=== PATIENT | female | born 1985 | race Caucasian/White ===

== ENCOUNTER 2018-10-18 06:20 | Inpatient (IN) | payer OTHER, SELFPAY ==
[2018-10-18 07:12] VITALS: BMI 38.3
[2018-10-18] MEDS: Lactated Ringer's 1,000 ML IV SCH ×2 (07:15→08:52)
[2018-10-18] MEDS ORDERED: Misoprostol 200 MCG TAB PR PRN (07:28)
[2018-10-18] MEDS ORDERED: NS / Oxytocin 40 units/1000ml 1,000 ML IV PRN (07:28)
[2018-10-18] MEDS ORDERED: Methylergonovine 0.2 MG/ML VIAL IM PRN (07:28)
[2018-10-18] MEDS ORDERED: hydrALAZINE 20 MG/ML VIAL SLOW IVP PRN ×2 (07:28→14:04)
[2018-10-18] MEDS ORDERED: Acetaminophen 500 MG TAB PO PRN (07:28)
[2018-10-18] MEDS ORDERED: Lidocaine 1% (PF) 30 ML VIAL SC PRN (07:28)
[2018-10-18] MEDS ORDERED: Ibuprofen 800 MG TAB PO PRN (07:28)
[2018-10-18] MEDS ORDERED: Ondansetron PF 4 MG/2 ML Vial IVP PRN ×2 (07:28→09:28)
[2018-10-18] MEDS ORDERED: Carboprost 250 MCG/ML AMP IM PRN (07:28)
[2018-10-18] MEDS ORDERED: Promethazine HCl 25 MG/ML VIAL IM PRN ×2 (07:28→09:28)
--- NOTE | 2018-10-18 07:49 | PDOC.FPROB ---
FMR OB H&P: HPI - History of Present Illness Chief Complaint: contractions History of Present Illness: 33 y/o , @38.3 dated by Patient complains of contractions every 4-5 minutes that are rated a 6/10 for pain. She is requesting a epidural for pain control. Patient denies any LOF, vaginal bleeding. She states she feels baby moving. Her first check in L&D was a 5 with buldging bag. Pt has a hx of placenta previa that was resolved on US Friday 10/13. She states her GTT was elevated but her glucose logs have all been normal and she is controlling gDM without meds and diet only. Primary Care Physician: Dr. Martinez FMR OB H&P: Current - Care : 4 Para: 3 Gestational age: 38.3 Due date: 10/29/18 Dating Criteria: 7.3 wk sono and LMP Course/Complications: gestational DM - OB Labs Blood type: O RH: positive Antibody Screen: negative HIV: negative RPR: negative HepBsAg: negative Rubella: immune Gonorrhea: negative Chlamydia: negative Pap Smear: neg 1 hour gtt: unknown record 3 hour GTT: unknown record A1c: 5.3 GBS: unknown - First Trimester Ultrasound First trimester: complete previa - Anatomy Survey Anatomy survey: nml multigravida , in 2nd trimester Complete previa noted - Additional Ultrasound Additional: no complete previa on sono done 10/13. FMR OB H&P: History - Past Medical History PMH: no known PMHx. Denies asthma or HTN. - OB History OB History: Placenta Previa --> resolved - Surgical History Sx History: none - Social History Social History: Denies use of tobacco, etoh, or drugs. - Family History Family History: Spouse's niece had Trisomy 21. FMR OB H&P: Medications - Current Home Medications: Medication Instructions Recorded Confirmed Type No Known 10/18/18 10/18/18 History Allergies/Adverse Reactions: Allergies Allergy/AdvReac Type Severity Reaction Status Date / Time No Known Allergies Allergy Unverified 10/18/18 07:05 FMR OB H&P: ROS - Review of Systems General: denies: fever/chills, night sweats, fatigue Eyes: denies: eye pain, vision changes, double vision ENT: denies: nasal congestion, rhinorrhea Cardiovascular: denies: chest pain, palpitation, edema Respiratory: denies: cough, congestion, shortness of breath Gastrointestinal: denies: abdominal pain, nausea, vomiting, diarrhea, constipation Genitourinary (Female): denies: incontinence, dysuria Musculoskeletal: denies: pain, arthritis/arthralgias Neurologic: denies: seizures, weakness Integumentary: denies: rash Psychological: denies: depression, anxiety FMR OB H&P: Vital Signs - Maternal Vital signs: Vital Signs - First Documented Temp Pulse Resp BP Pulse Ox 98.2 F 93 18 120/60 99 10/18/18 07:04 10/18/18 07:04 10/18/18 07:04 10/18/18 07:04 10/18/18 07:04 - Heart Tones Baseline: 140 Variability: moderate Acceleration: present Deceleration: absent Category: category 1 [place] contractions every: 5-7 min FMR OB H&P: Physical Exam - Physical Exam General: NAD, awake, alert and oriented HEENT: normocephalic and atraumatic, PERRLA, EOMI, MMM, conjunctiva clear, no scleral icterus, grossly normal vision, grossly normal hearing, oropharynx clear , good dention Neck: supple, FROM, trachea midline Chest: non-tender to palpation, no lesions Heart: RRR, normal S1/S2, no murmurs/rubs/gallops, pulses present, no edema General: CTAB, no respiratory distress, good air movement, no rales/rhonchi, no wheezing, no retractions Abdomen: soft, gravid, non-tender, bowel sound present Musculoskeletal: normal gait and station, pulses present, FROM in all four extremities Neurological: cranial nerves II through XII intact, sensation to pain,touch and proprioception grossly normal Skin: no rash, no jaundice Lymphatic: no unusual bruising or bleeding, no purpura, no petechia Psychiatric: intact recent and remote memory, good judgement and insight, normal mood and affect - Pelvic Exam SVE: 5 @ 7:10 by nurse Membranes: intact, bulging bag FMR OB H&P: A/P - Problem List (1) Term Current Visit: Yes Status: Acute Code(s): Z34.90 - ENCNTR FOR SUPRVSN OF NORMAL , UNSP, UNSP TRIMESTER (2) Gestational diabetes mellitus Current Visit: Yes Status: Acute Code(s): O24.419 - GESTATIONAL DIABETES MELLITUS IN , UNSP CONTROL Disposition: Patient stable, contractions every 4-5 minutes. Discussion: 33 y/o @ 38.3 wks, by 7.1 wk sono, admitted for contractions and term . 1. Term IUP -FHT's baseline 140's. Cat 1 strip- moderate variability, no decels, accels present. -check: 5 bulging bag @ 7:10 -Pt wants epidural for pain management. -Recheck in X2 hours once epidural placed -Complete Placenta Previa, resolved on most recent US on Friday 10/13. 3. Gestational DM -managed by diet, no medications -Blood glucose has been normal
[2018-10-18 08:07] LABS: Hemoglobin 11.5 g/dL (12.0-16.0); Mean Corpuscular HGB CONC 33.9 g/dL (32.0-36.0); Mean Corpuscular Hemoglobin 29.1 pg (27.0-31.0); Mean Corpuscular Volume 85.8 fL (78.0-98.0); Mean Platelet Volume 8.5 fL (7.4-10.4); Platelet Count 227 thou/uL (130-400); RBC Distribution Width 13.8 % (11.5-14.5); Red Blood Cell (RBC) Count 3.95 mill/uL (4.20-5.40); White Blood Cell (WBC) Count 9.5 thou/uL (4.8-10.8)
[2018-10-18] MEDS ORDERED: Fentanyl 4 mcg/Bup 0.1% Cadd 0 ML ONE (08:18)
[2018-10-18] MEDS ORDERED: Fentanyl 4 mcg/Bup 0.1% Cadd 100 ML ONE (08:20)
[2018-10-18 08:35] LABS: HBSAg Index 0.27 S/CO (0-0.99); Hep B Surf Ag Non-Reactive S/CO (NonReactive); Syphilis Antibody Nonreactive (Nonreactive); Syphilis Antibody Index 0.04 S/CO (<1.00 Non-Reactive)
[2018-10-18] MEDS ORDERED: diphenhydrAMINE 50 MG/ML VIAL IVP PRN (09:28)
[2018-10-18] MEDS ORDERED: Lactated Ringer's 500 ML IV PRN (09:28)
[2018-10-18] MEDS ORDERED: ePHEDrine/0.9% NaCl/PF SYRINGE 50 mg/10 ml SLOW IVP PRN (09:28)
[2018-10-18] MEDS ORDERED: Naloxone HCl 0.4 mg/ml Vial IVP PRN ×2 (09:28)
[2018-10-18] MEDS ORDERED: Communication Order-Pharmacy FS SCH (09:30)
[2018-10-18] MEDS ORDERED: Fentanyl 4 mcg/Bupivacaine 0.1% Cassette 100 ML EPIDURAL SCH (09:30)
--- NOTE | 2018-10-18 10:03 | PDOC.LDPN ---
Labor & Delivery Progress Note - Subjective Subjective: comfortable, painful contractions - Objective Vital signs reviewed and normal: yes General: NAD, resting, breathing through contractions Uterine fundus: non tender SVE: @[address] Luna Dilation: 7 Effacement: 75% Station: -3 FHT: category 1 (FHT 150's baseline. Accels present. Mod variability. ), variability present [place] contractions every: 3-5 min Other exam findings: ballotable head - Assessment (1) Term Code(s): Z34.90 - ENCNTR FOR SUPRVSN OF NORMAL , UNSP, UNSP TRIMESTER Current Visit: Yes Status: Acute (2) Gestational diabetes mellitus Code(s): O24.419 - GESTATIONAL DIABETES MELLITUS IN , UNSP CONTROL Current Visit: Yes Status: Acute Plan: continue plan of care -: 33 y/o F @38.3 wks by 7.1 wk sono. Presented with contractions. 1. Term IUP, active labor -continue current active labor management. -Recheck in 1 hour @1025 -SVE at 0925 7/70%/-3, with head ballotable. 2. gestational DM -managed with diet, no meds. -blood glucose home readings have been in nml range. dispo: Patient stable, continue current labor management, recheck SVE in X1 hour
[2018-10-18] MEDS ORDERED: Bupivacaine/Epinephrine 0.25% 30 ML VIAL ONE (11:11)
--- NOTE | 2018-10-18 11:51 | PDOC.LDPN ---
Labor & Delivery Progress Note - Subjective Subjective: comfortable, painful contractions, no concerns - Objective Vital signs reviewed and normal: yes General: NAD, resting, breathing through contractions Uterine fundus: non tender SVE: @ [address] Luna Dilation: 9 Effacement: 90% Station: 0 FHT: category 1 (mod variability, no decels, accels present ), variability present [place] contractions every: 5 minutes Other exam findings: bulging bag - Assessment (1) Term Code(s): Z34.90 - ENCNTR FOR SUPRVSN OF NORMAL , UNSP, UNSP TRIMESTER Current Visit: Yes Status: Acute (2) Gestational diabetes mellitus Code(s): O24.419 - GESTATIONAL DIABETES MELLITUS IN , UNSP CONTROL Current Visit: Yes Status: Acute Plan: continue plan of care -: 1. Term IUP -Continue current management of term , active labor. -SVE @ 11:45 9/95%/0, with bulging bag -no need for AROM at this time -FHT's: 145 baseline, Cat 1 strip: accels present, no decels, mod variability 2. Gestational DM -managed by diet, and no medications. Dispo: stable, continue current labor management.
[2018-10-18] MEDS ORDERED: NS / Oxytocin 40 units/1000ml 1,000 ML ONE (12:53)
--- NOTE | 2018-10-18 13:31 | PDOC.OPDEL ---
OB Operative/Delivery Note Delivery Dr/Surgeon: Bruno Luna Pope Pre-Delivery Diagnosis: active labor Procedure/Post Delivery Dx: spontaneous vaginal delivery Weeks gestation: 38 (38.2) Anesthesia: epidural - Additional Findings/Plan Placenta delivered: spontaneous Repaired Obstetrical Laceration: none Estimated blood loss: 50 Compilations/Other Findings: This is 33yo F , now 4 @ 38.3 wks who delivered a viable M at 1302. Following an uneventful antepartum course, a vigorous male was delivered over an intact perineum in the right occipitoanterior position. Anterior Shoulder and then remainder of the body delivered. No nuchal cord. The head was held down and mouth and nares were bulb suctioned. Cord clamped after delayed cord clamping and cut and cord blood collected. Placenta delivered intact in the [place] presentation with a 3 vessel cord noted. Fundal massage was performed and the fundus was firm. The cervix and vagina were inspected and found to be free of lacerations. went to nursery in good condition for routine care, after skin to skin time with mother. Apgars were 9/ 9 at 1 & 5 minutes, respectively. Patient tolerated delivery well and went to after routine recovery/care. Post delivery plan: routine recovery
[2018-10-18] MEDS ORDERED: Lanolin Ointment 7 GM TUBE TOP PRN (14:04)
[2018-10-18] MEDS ORDERED: Benzocaine-Menthol 82.5 ML CAN TOP PRN (14:04)
[2018-10-18] MEDS ORDERED: Adacel (T-DAP) 0.5 ML SYRINGE IM ONE (14:04)
[2018-10-18] MEDS ORDERED: NS / Oxytocin 40 units/1000ml 1,000 ML IV SCH (14:04)
[2018-10-18] MEDS ORDERED: Bisacodyl 10 MG SUPP PR PRN (14:04)
[2018-10-18] MEDS ORDERED: Milk Of Magnesia 30 ML UDCUP PO PRN (14:04)
[2018-10-18] MEDS: Ibuprofen 800 MG TAB PO SCH ×2 (16:34→20:56)
[2018-10-18] MEDS: Ferrous Sulfate 325 MG TAB PO SCH (16:35)
[2018-10-18] MEDS: Acetaminophen 325 MG TAB PO PRN ×2 (16:47→23:45)
[2018-10-18] MEDS: Docusate Calcium (SURFAK) 240 MG CAP PO SCH (20:56)
[2018-10-19] MEDS: Ibuprofen 800 MG TAB PO SCH ×3 (05:57→21:31)
--- NOTE | 2018-10-19 06:29 | PDOC.PP ---
Post Progress Note Post Day #: 1 Subjective: Mom states she is doing well, but would like to stay until tomorrow. She us breast feeding X20 minutes each side every couple of hours. She denies any BM yet, states she is urinating normally. PO intake tolerated: yes Flatus: no Ambulation: yes Vital Signs (12 hours) Temp Pulse Resp BP Pulse Ox 10/19/18 06:00 98.5 F 81 18 110/57 L 10/18/18 23:46 98.2 F 92 16 101/56 L 98 10/18/18 20:45 98.6 F 96 18 107/53 L Weight Weight 86.183 kg - Physical Examination General: NAD Cardiovascular: no m/r/g, RRR Respiratory: clear to auscultation bilaterally, non-labored breathing Abdominal: + bowel sounds, lochia, no distention, appropriately TTP Skin: no rash Neurological: no gross focal deficits Psychiatric: A&Ox3, normal affect Result Diagrams: 10/18/18 07:35 Additional Labs: Post Labs Blood Type O POSITIVE 10/18/18 08:18 Hep Bs Antigen Non-Reactive S/CO (NonReactive) 10/18/18 07:35 (1) (spontaneous vaginal delivery) Code(s): O80 - ENCOUNTER FOR FULL-TERM UNCOMPLICATED DELIVERY Status: Acute (2) Term Code(s): Z34.90 - ENCNTR FOR SUPRVSN OF NORMAL , UNSP, UNSP TRIMESTER Status: Resolved (3) Gestational diabetes mellitus Code(s): O24.419 - GESTATIONAL DIABETES MELLITUS IN , UNSP CONTROL Status: Acute Qualifiers: Gestational diabetes mellitus control: diet-controlled - Assessment/Plan 33 y/o admitted for contractions is day 1 post , now receiving routine post care. 1. Normal Spontaneous Vaginal Delivery -@1302 on 10/18 -QBL 50 mL -No Lacerations -Apgars 9/9 -No complications -Breast feeding and bonding appropriately with . -continue current pain regimen 2. Gestational DM -Monitor blood glucose while here -improving Dispo: will discharge home tomorrow if 24 hr bilirubin low risk and mom stable.
[2018-10-19] MEDS: Acetaminophen 325 MG TAB PO PRN ×2 (08:57→16:44)
[2018-10-19] MEDS: Ferrous Sulfate 325 MG TAB PO SCH ×2 (08:58→18:16)
[2018-10-19] MEDS: Docusate Calcium (SURFAK) 240 MG CAP PO SCH ×2 (08:58→21:31)
[2018-10-19] MEDS: Prenatal Vitamin 1 TAB PO SCH (08:58)
[2018-10-20] MEDS: Acetaminophen 325 MG TAB PO PRN (00:31)
[2018-10-20] MEDS: Ibuprofen 800 MG TAB PO SCH ×2 (05:37→15:42)
[2018-10-20 05:42] VITALS: BP 98/58; TEMP 98.3
[2018-10-20] MEDS: Docusate Calcium (SURFAK) 240 MG CAP PO SCH (09:03)
[2018-10-20] MEDS: Prenatal Vitamin 1 TAB PO SCH (09:03)
[2018-10-20] MEDS: Ferrous Sulfate 325 MG TAB PO SCH (09:04)
--- NOTE | 2018-10-20 10:15 | PDOC.PP ---
Post Progress Note Post Day #: 2 Subjective: Mom voices no complains. She states she is sore, but managing with the pain. PO intake tolerated: yes Flatus: yes Ambulation: yes Vital Signs (12 hours) Temp Pulse Resp BP BP Pulse Ox 10/20/18 05:41 98.3 F 88 16 98/58 L 10/20/18 00:30 98.2 F 83 16 90/52 L 98 Weight Weight 86.183 kg - Physical Examination General: NAD Cardiovascular: no m/r/g, RRR Respiratory: clear to auscultation bilaterally, non-labored breathing Abdominal: + bowel sounds, lochia, no distention, appropriately TTP Extremities: negative homans (B) Skin: no rash Neurological: no gross focal deficits Psychiatric: A&Ox3, normal affect Result Diagrams: 10/18/18 07:35 Additional Labs: Post Labs Blood Type O POSITIVE 10/18/18 08:18 Hep Bs Antigen Non-Reactive S/CO (NonReactive) 10/18/18 07:35 (1) (spontaneous vaginal delivery) Code(s): O80 - ENCOUNTER FOR FULL-TERM UNCOMPLICATED DELIVERY Status: Resolved (2) Term Code(s): Z34.90 - ENCNTR FOR SUPRVSN OF NORMAL , UNSP, UNSP TRIMESTER Status: Resolved (3) Gestational diabetes mellitus Code(s): O24.419 - GESTATIONAL DIABETES MELLITUS IN , UNSP CONTROL Status: Acute Qualifiers: Gestational diabetes mellitus control: diet-controlled - Assessment/Plan 33 y/o admitted for contractions is day 2 post , now receiving routine post care. 1. Normal Spontaneous Vaginal Delivery -@1302 on 10/18 -QBL 50 mL -No Lacerations -Apgars 9/9 -No complications -Breast feeding and bonding appropriately with . -continue current pain regimen Motrin and Tylenol 2. Gestational DM -Monitor blood glucose while here -improving Dispo: will discharge home today.
== END 2018-10-20 15:55 | disposition home or self-care (01) | DRG 807 ==
LOC: L&D/OP 06:20 → L&D 12:35 → 3SE 16:24
PROVIDERS: ADMIT Emergency Medicine; ATTEND Emergency Medicine
PROC: 10E0XZZ Delivery of Products of Conception, External Approach (ICD-10-PCS; principal; 2018-10-18)
DX: O24.420 Gestational diabetes mellitus in childbirth, diet controlled (principal); Z37.0 Single live birth; Z3A.38 38 weeks gestation of pregnancy
CPT/HCPCS: 36415; 36416; 51702; 76815; 85027; 86780; 86850; 86900; 86901; 87340; 99285